=== PATIENT | male | born 1955 ===

== ENCOUNTER 2022-05-04 18:39 | Emergency (ER) | payer SELFPAY ==
[2022-05-04 19:28] LABS: AMPHETAMINES,URINE NEGATIVE (NEGATIVE); BARBITURATES,URINE NEGATIVE (NEGATIVE); BENZODIAZEPINE,URINE NEGATIVE (NEGATIVE); MDMA (ECSTASY), URINE NEGATIVE (NEGATIVE); METHADONE,URINE NEGATIVE (NEGATIVE); METHAMPHETAMINES,URINE NEGATIVE (NEGATIVE); OPIATES,URINE NEGATIVE (NEGATIVE); OXYCODONE,URINE NEGATIVE (NEGATIVE); PHENCYCLIDINE,URINE NEGATIVE (NEGATIVE); TCA,URINE NEGATIVE (NEGATIVE)
[2022-05-04] MEDS ORDERED: Sodium Chloride 0.9% 1,000 ML IV ONE (19:53)
== END 2022-05-04 21:00 | disposition home or self-care (01) ==
LOC: DL.ED 18:39
DX: S60.211A Contusion of right wrist, initial encounter (principal); S60.212A Contusion of left wrist, initial encounter; F10.10 Alcohol abuse, uncomplicated
CPT/HCPCS: 36415; 80053; 80143; 80179; 80305-QW; 80307; 81001; 82140; 83605; 83735; 84145; 85025; 93005; 93010; 96360; 99283; 99283-25; J7030

== ENCOUNTER 2022-05-06 16:49 | Emergency (ER) | payer SELFPAY ==
[2022-05-06] MEDS ORDERED: fentaNYL 100 MCG/2 ML SDV ONE (19:39)
== END 2022-05-06 20:55 | disposition home or self-care (01) ==
LOC: DL.ED 16:49
DX: S42.202A Unspecified fracture of upper end of left humerus, initial encounter for closed fracture (principal); X50.0XXA Overexertion from strenuous movement or load, initial encounter
CPT/HCPCS: 73030-LT; 73200-LT; 94762; 99282; 99283

== ENCOUNTER 2022-06-03 16:39 | Emergency (ER) | payer SELFPAY ==
[2022-06-03 18:05] LABS: AMPHETAMINES,URINE NEGATIVE (NEGATIVE); BARBITURATES,URINE NEGATIVE (NEGATIVE); BENZODIAZEPINE,URINE NEGATIVE (NEGATIVE); MDMA (ECSTASY), URINE NEGATIVE (NEGATIVE); METHADONE,URINE NEGATIVE (NEGATIVE); METHAMPHETAMINES,URINE NEGATIVE (NEGATIVE); OPIATES,URINE NEGATIVE (NEGATIVE); OXYCODONE,URINE NEGATIVE (NEGATIVE); PHENCYCLIDINE,URINE NEGATIVE (NEGATIVE); TCA,URINE NEGATIVE (NEGATIVE)
== END 2022-06-03 18:29 ==
LOC: DL.ED 16:39
DX: S93.401A Sprain of unspecified ligament of right ankle, initial encounter (principal); M25.512 Pain in left shoulder
CPT/HCPCS: 73030-LT; 73610-RT; 80305-QW; 99284